=== PATIENT | male | born 1950 | race Two or more races ===

== ENCOUNTER 2025-01-05 06:12 | Inpatient (IN) | payer OTHER ==
[~2025-01-05] VITALS: Ht 170.2 cm; Wt 83.0 kg
[2025-01-05] MEDS ORDERED: ZYLOPRIM100 M1 (06:54)
[2025-01-05] MEDS ORDERED: EZALLOR SPRINKL40 MG PO (06:54)
[2025-01-05] MEDS ORDERED: VAZALORE81 MG PO (06:54)
[2025-01-05] MEDS ORDERED: LOSARTAN POTAS100 MG PO (06:55)
[2025-01-05] MEDS ORDERED: NASAL MIST126 ML (06:55)
[2025-01-05] MEDS ORDERED: JARDIANCE10 MG PO (06:55)
[2025-01-05] MEDS ORDERED: EZETIMIBE10 MG PO (06:55)
[2025-01-05] MEDS ORDERED: MOUNJARO5 MG/0.5 M SQ (06:56)
[2025-01-05] MEDS ORDERED: NORVASC2.5 MG PO (06:56)
[2025-01-05] MEDS ORDERED: 0.9 % SODIUM CHLORIDE 1,000 ML IV STA (07:16)
[2025-01-05] MEDS ORDERED: KETOROLAC TROMETHAMINE 15 MG VIAL IV STA (07:17)
[2025-01-05] MEDS ORDERED: MORPHINE SULFATE 4 MG/ML VIAL IV STA (07:17)
[2025-01-05] MEDS ORDERED: ONDANSETRON HCL 2 MG/ML VIAL IV STA (07:18)
[2025-01-05] MEDS ORDERED: FAMOtidine 10 MG/ML (4ML VIAL) IV PUSH STA (07:18)
[2025-01-05] MEDS ORDERED: HYOSCYAMINE SULFATE 0.125 MG TAB.SUBL SL ONE (07:30)
[2025-01-05 08:47] LABS: BASO % 0.4 % (0.1-1.2); EOS # 0.02 (0.04-0.54); EOS % 0.1 % (0.7-7.0); LYMPH # 0.72 (1.18-3.74); LYMPH % 5.3 % (19.3-53.1); MEAN PLATELET VOLUME 10.70 fl (9.4-12.4); MONO # 1.01 (0.24-0.82); MONO % 7.5 % (4.7-12.5); NEUT # 11.69 (1.56-6.13); NEUT % 86.4 % (34.0-71.1); RED CELL DISTRIBUTION WIDTH 13.0 % (11.6-14.4)
[2025-01-05 09:06] LABS: INR 1.03
[2025-01-05 09:07] LABS: ALT/SGPT 103.0 U/L (12-78); AST/SGOT 46.0 U/L (15-37); BILIRUBIN TOTAL 0.91 mg/dL (0.3-1.2); BUN CREA RATIO 19.0 (7.0-25.0); CREATININE SERUM 1.35 mg/dL (0.70-1.30); GFR 51.95; GLOBULINA 3.2 G/DL (2.4-3.5); GLUCOSE FASTING 133.0 mg/dL (65-100); OSMOLALITY SERUM 289.0 MOSM/KG (275-295)
[2025-01-05] MEDS ORDERED: PIPERACILLIN/TAZOBACTAM SODIUM 3.375 GM VIAL IV ONE (09:15)
[2025-01-05] MEDS ORDERED: MORPHINE SULFATE 4 MG/ML CARTRIDGE IV PRN (18:45)
[2025-01-05] MEDS ORDERED: ONDANSETRON HCL 2 MG/ML VIAL IV PRN ×2 (18:45)
[2025-01-05] MEDS ORDERED: PIPERACILLIN/TAZOBACTAM SODIUM 3.375 GM VIAL IV SCH (20:00)
[2025-01-05 22:33] VITALS: BP 137/73; O2SAT 96
[2025-01-06 01:00] VITALS: BP 130/75; O2SAT 93
[2025-01-06 08:58] VITALS: BP 125/72; O2SAT 92
[2025-01-06] MEDS ORDERED: SUCRALFATE 1 G TABLET PO SCH (09:00)
[2025-01-06] MEDS ORDERED: SIMETHICONE 125 MG CAPSULE PO SCH (09:00)
[2025-01-06] MEDS ORDERED: LACTOBACILLUS ACIDOPHILUS 1 CAP CAP PO SCH (09:00)
[2025-01-06] MEDS ORDERED: METHYLPREDNISOLONE SOD SUCC 40 MG VIAL ONE (11:12)
[2025-01-06] MEDS ORDERED: DIPHENHYDRAMINE HCL 50 MG/ML VIAL 1ML ONE (11:12)
[2025-01-06] MEDS ORDERED: DIPHENHYDRAMINE HCL 50 MG/ML VIAL 1ML IV PRN (11:30)
[2025-01-06 18:10] VITALS: BP 125/73; O2SAT 97
[2025-01-06] MEDS ORDERED: KETOROLAC TROMETHAMINE 30 MG VIAL IV PRN (19:45)
[2025-01-07 02:14] VITALS: BP 159/82; O2SAT 93
[2025-01-07 09:45] VITALS: BP 154/78; O2SAT 92
[2025-01-07] MEDS ORDERED: LOSARTAN POTASSIUM 100 MG TABLET PO NR (10:30)
[2025-01-07] MEDS ORDERED: AMLODIPINE BESYLATE 2.5 MG TABLET PO NR (10:30)
[2025-01-07] MEDS ORDERED: ROSUVASTATIN CALCIUM 20 MG TABLET PO NR (10:30)
[2025-01-08] MEDS ORDERED: ROSUVASTATIN CALCIUM 20 MG TABLET PO SCH (09:00)
[2025-01-08] MEDS ORDERED: ALLOPURINOL 300 MG TABLET PO SCH (09:00)
[2025-01-08] MEDS ORDERED: LOSARTAN POTASSIUM 100 MG TABLET PO SCH (09:00)
[2025-01-08] MEDS ORDERED: AMLODIPINE BESYLATE 2.5 MG TABLET PO SCH (09:00)
== END 2025-01-07 16:54 | disposition home or self-care (01) | DRG 399 ==
LOC: ER 06:12 → MEDJ 14:21 → O/R 14:21 → SURG 19:10 → SURH 19:12 → O/R 19:16 → MEDJ 19:38
PROVIDERS: ADMIT Surgery; ATTEND Surgery
PROC: BW21ZZZ Computerized Tomography (CT Scan) of Abdomen and Pelvis (ICD-10-PCS; 2025-01-05)
PROC: 0DTJ4ZZ Resection of Appendix, Percutaneous Endoscopic Approach (ICD-10-PCS; principal; 2025-01-05 16:30)
DX: K35.31 Acute appendicitis with localized peritonitis and gangrene, without perforation (principal)